=== PATIENT | female | born 1940 | race Caucasian/White ===

== ENCOUNTER → 2016-07-28 08:38 | Outpatient (CLI) | payer MEDICARE, OTHER | END | disposition home or self-care (01) | LOC: D.US 08:38 | DX: R19.7 Diarrhea, unspecified (principal) ==

== ENCOUNTER → 2016-08-01 07:54 | Outpatient (CLI) | payer MEDICARE, OTHER | END | disposition home or self-care (01) | LOC: D.MRI 07:54 | DX: R19.09 Other intra-abdominal and pelvic swelling, mass and lump (principal) ==

== ENCOUNTER 2017-06-02 20:39 | Inpatient (IN) | payer MEDICARE, OTHER ==
[~2017-06-02] VITALS: Ht 149.9 cm; Wt 46.9 kg
--- NOTE | ~2017-06-02 | DS ---
PATIENT:FUAD CHRISTIANSEN :42 MEDICAL RECORD: [id number] DISCHARGE SUMMARY ADMISSION DATE: 06/02/17 DISCHARGE DATE: 06/06/17 DATE OF ADMISSION: 06/02/2017. DATE OF DISCHARGE: 06/06/2017. ADMISSION DIAGNOSES: Acute temperature fever, status post chemo, pancreatic cancer, chemotherapy. DISCHARGE DIAGNOSES: Acute febrile illness, status post chemo, pancreatic cancer, urinary tract infection. HOSPITAL COURSE: The patient had an uneventful hospital course, was admitted. Blood and urine cultures obtained, was empirically started on IV antibiotics, has remained afebrile. Urine cultures identified, susceptibility noted. We will discharge on Cipro 500 b.i.d. The patient has an appointment with her oncologist tomorrow morning. The patient is discharged home in improved condition. The patient understands the risk of immunosuppressed patient in the hospital. Significant would like to follow up with her oncologist in [place] tomorrow with continuation of her definitive care for pancreatic cancer and her anemia chemo induced. PHYSICAL EXAMINATION: VITAL SIGNS: On discharge, temperature 99, blood pressure 136/57, heart rate 89, respirations 17, O2 sats 93%. GENERAL: Alert, oriented, no acute distress. HEART: Regular rate and rhythm. LUNGS: Clear. ABDOMEN: Soft. EXTREMITIES: Present times 4. NEUROLOGIC: Intact. LABORATORY DATA: CBC on discharge; white count 4.1, hemoglobin 8.1, hematocrit 24.7, platelets 102. Chemistry shows a sodium of 136, potassium 3.3, chloride 102, bicarbonate 24.2, BUN 8, creatinine 0.4. DISCHARGE INSTRUCTIONS: Discussed care plan with the patient and . They declined home health at this time, agree with discharge, so they can follow up with oncology tomorrow. Will call if they have any further needs. At this time, care plan as dictated by oncology with her advanced pancreatic cancer. TRANSINT:[id number] Voice Confirmation ID: [id number] DOCUMENT ID: [id number] HERMILA GARCIA DO at 0802 CC: [id number] DICTATION DATE: 06/06/17818 BOARD LINER OPERATOR: 06/06/17 1405 DIS IN 06/06/17 [id number] [place] [address]
[2017-06-02 22:03] LABS: BASOPHILS 0.1 % (0-2); EOSINOPHILS 0.7 % (0-7); HEMATOCRIT 27.9 % (36.0-48.0); HEMOGLOBIN 9.1 g/dL (12-16); IMMATURE GRANULOCYTES 0.3 % (0-5); LYMPHOCYTES 4.4 % (15-50); MCHC 32.6 g/dL (31.0-37.0); MCV 92.1 fL (80.0-100.0); MEAN PLATELET VOLUME 12.6 fL (7.4-10.4); MONOCYTES 0.5 % (2-11); PLATELET COUNT 172 10x3/uL (130-400); RBC 3.03 10x6/uL (4.00-5.40); WBC 14.8 10x3/uL (4.8-10.8)
[2017-06-02 22:16] LABS: ALBUMIN 2.6 g/dL (3.4-5.0); ALKALINE PHOSPHATASE 687 U/L (46-116); ALT (SGPT) 37 U/L (10-68); AMYLASE - SERUM 14 U/L (25-115); CALC OSMOLALITY 273 mosm/kg (275-300); CALCIUM 8.1 mg/dL (8.5-10.1); CARBON DIOXIDE 23.7 mmol/L (21.0-32.0); CHLORIDE - SERUM 100 mmol/L (98-107); CREATININE - SERUM 0.7 mg/dL (0.6-1.3); GLUCOSE 152 mg/dL (74-106); POTASSIUM - SERUM 3.9 mmol/L (3.5-5.1); PROTEIN - SERUM 6.1 g/dL (6.4-8.2); SODIUM 135 mmol/L (136-145); UREA NITROGEN 15 mg/dL (7-18); eGFR NON AFRICAN AMERICAN 86 mL/min (90-120)
[2017-06-02 22:18] LABS: LIPASE 29 U/L (73-393)
[2017-06-02 22:26] LABS: APPEARANCE CLEAR (CLEAR); BILIRUBIN NEGATIVE (NEGATIVE); COLOR DK YELLOW (YELLOW); GLUCOSE NEGATIVE (NEGATIVE); KETONE NEGATIVE (NEGATIVE); NITRITE NEGATIVE (NEGATIVE); PROTEIN 1+ mg/dL (NEGATIVE); SPECIFIC GRAVITY 1.015 (1.005-1.020); UROBILINOGEN NORMAL (NORMAL)
[2017-06-02 22:28] LABS: BACTERIA FEW /hpf (NONE SEEN); EPITHELIAL CELLS OCC /hpf (0-5)
[2017-06-02] MEDS ORDERED: ZOFRAN8 MG PO (23:47)
[2017-06-02] MEDS ORDERED: XANAX0.5 MG PO (23:48)
[2017-06-02] MEDS ORDERED: FLUVIRIN (23:48)
[2017-06-02] MEDS ORDERED: OMEPRAZOLE20 M1 PO (23:49)
[2017-06-02] MEDS ORDERED: CREON (PANCRELI1 CAP PO (23:49)
[2017-06-02] MEDS ORDERED: HYDROCODON-ACE1 EAC7 PO (23:49)
[2017-06-03] VITALS: BP 101/42
[2017-06-03 02:28] VITALS: BMI 20.6
[2017-06-03 06:20] VITALS: BP 106/54
[2017-06-03 08:12] VITALS: BP 112/53
[2017-06-03 11:08] VITALS: Ht 149.9 cm; Wt 46.9 kg
[2017-06-03 11:30] VITALS: BP 110/64
[2017-06-03 15:40] VITALS: BP 108/77
[2017-06-03 21:52] VITALS: BP 129/60
[2017-06-04 00:52] VITALS: BP 112/44
[2017-06-04 06:21] LABS: BASOPHILS 0.1 % (0-2); EOSINOPHILS 2.3 % (0-7); HEMATOCRIT 26.3 % (36.0-48.0); HEMOGLOBIN 8.4 g/dL (12-16); IMMATURE GRANULOCYTES 0.2 % (0-5); LYMPHOCYTES 9.4 % (15-50); MCH 29.9 pg (26.0-34.0); MCHC 31.9 g/dL (31.0-37.0); MCV 93.6 fL (80.0-100.0); MEAN PLATELET VOLUME 13.3 fL (7.4-10.4); MONOCYTES 0.3 % (2-11); NEUTROPHILS 87.7 % (40-80); RBC 2.81 10x6/uL (4.00-5.40); RDW 15.2 % (11.5-14.5)
[2017-06-04 06:22] LABS: PLATELET COUNT 125 10x3/uL (130-400); WBC 8.6 10x3/uL (4.8-10.8)
[2017-06-04 06:31] LABS: ALKALINE PHOSPHATASE 622 U/L (46-116); ALT (SGPT) 28 U/L (10-68); CALC OSMOLALITY 275 mosm/kg (275-300); CALCIUM 7.7 mg/dL (8.5-10.1); CARBON DIOXIDE 24.2 mmol/L (21.0-32.0); CHLORIDE - SERUM 105 mmol/L (98-107); CREATININE - SERUM 0.4 mg/dL (0.6-1.3); GLUCOSE 115 mg/dL (74-106); POTASSIUM - SERUM 3.6 mmol/L (3.5-5.1); PROTEIN - SERUM 5.4 g/dL (6.4-8.2); SODIUM 138 mmol/L (136-145); UREA NITROGEN 9 mg/dL (7-18); eGFR NON AFRICAN AMERICAN > 90 mL/min (90-120)
[2017-06-04 07:25] VITALS: BP 141/67
[2017-06-04 08:00] VITALS: BP 152/70
[2017-06-04 12:03] VITALS: BP 127/64
[2017-06-04 19:00] VITALS: BP 140/67
[2017-06-05] VITALS: BP 135/49
[2017-06-05 04:00] VITALS: BP 141/57
[2017-06-05 06:01] LABS: BASOPHILS 0.2 % (0-2); IMMATURE GRANULOCYTES 0.2 % (0-5); LYMPHOCYTES 16.9 % (15-50); MCH 29.6 pg (26.0-34.0); MCV 92.6 fL (80.0-100.0); MEAN PLATELET VOLUME 12.3 fL (7.4-10.4); MONOCYTES 1.9 % (2-11); NEUTROPHILS 78.8 % (40-80); PLATELET COUNT 115 10x3/uL (130-400); RDW 15.2 % (11.5-14.5)
[2017-06-05 06:22] LABS: WBC 5.9 10x3/uL (4.8-10.8)
[2017-06-05 06:49] LABS: CALC OSMOLALITY 279 mosm/kg (275-300); CARBON DIOXIDE 26.1 mmol/L (21.0-32.0); CHLORIDE - SERUM 106 mmol/L (98-107); CREATININE - SERUM 0.5 mg/dL (0.6-1.3); GLUCOSE 117 mg/dL (74-106); POTASSIUM - SERUM 3.6 mmol/L (3.5-5.1); SODIUM 140 mmol/L (136-145); UREA NITROGEN 12 mg/dL (7-18); eGFR NON AFRICAN AMERICAN > 90 mL/min (90-120)
[2017-06-05 08:05] VITALS: BP 149/76
[2017-06-05 12:58] VITALS: BP 133/62
[2017-06-05 17:23] VITALS: BP 157/73
[2017-06-05 19:00] VITALS: BP 132/57
[2017-06-06 04:00] VITALS: BP 136/57
[2017-06-06 05:10] LABS: BASOPHILS 0.2 % (0-2); EOSINOPHILS 1.7 % (0-7); HEMATOCRIT 24.7 % (36.0-48.0); HEMOGLOBIN 8.1 g/dL (12-16); IMMATURE GRANULOCYTES 0.2 % (0-5); LYMPHOCYTES 13.8 % (15-50); MCHC 32.8 g/dL (31.0-37.0); MCV 91.5 fL (80.0-100.0); MEAN PLATELET VOLUME 12.6 fL (7.4-10.4); MONOCYTES 5.4 % (2-11); NEUTROPHILS 78.7 % (40-80); PLATELET COUNT 102 10x3/uL (130-400); RDW 15.2 % (11.5-14.5)
[2017-06-06 05:11] LABS: WBC 4.1 10x3/uL (4.8-10.8)
[2017-06-06 05:21] LABS: CALC OSMOLALITY 270 mosm/kg (275-300); CALCIUM 7.8 mg/dL (8.5-10.1); CARBON DIOXIDE 24.2 mmol/L (21.0-32.0); CHLORIDE - SERUM 102 mmol/L (98-107); CREATININE - SERUM 0.4 mg/dL (0.6-1.3); GLUCOSE 120 mg/dL (74-106); POTASSIUM - SERUM 3.3 mmol/L (3.5-5.1); SODIUM 136 mmol/L (136-145); UREA NITROGEN 8 mg/dL (7-18); eGFR NON AFRICAN AMERICAN > 90 mL/min (90-120)
[2017-06-06] MEDS ORDERED: CIPRO500 MG PO (08:13)
[2017-06-06 09:03] VITALS: BP 135/65
== END 2017-06-06 10:30 | disposition home or self-care (01) | DRG 690 ==
LOC: D.ER 20:39 → D.M2 23:10
PROVIDERS: Emergency Medicine; Family Medicine
DX: N39.0 Urinary tract infection, site not specified (principal); C25.9 Malignant neoplasm of pancreas, unspecified; D64.81 Anemia due to antineoplastic chemotherapy; K21.9 Gastro-esophageal reflux disease without esophagitis